=== PATIENT | male | born 1980 ===

== ENCOUNTER 2025-02-27 08:45 | Outpatient (CLI) | payer OTHER ==
--- NOTE | 2025-02-27 13:49 | PROCEDURE NOTE ---
Procedure Note Providers to CC ~ Description: [place] EEG Note # Demographics Type of EEG Read: - Routine EEG - video Patient Location: Outpatient First Name: Juan Last Name: Negrita Date of : 1980 Age: 44 Gender: Male Facility: [facility] Time of Initial Page (): 02/27/2025 11:11 Time of Return Call ([place] Time): 02/27/2025 11:14 # EEG Interpretation Start Time of EEG Read (): 02/27/2025 09:05 Stop Time of EEG Read ([place] ): 02/27/2025 09:50 Duration: 0h 45m Technical Details: - The EEG electrodes were placed using the standard International 10-20 system of electrode placement. Video and an accessory EKG lead were used during the course of this study. - This study was recorded using the [employer] EEG software Indication: - seizure # Description Photic Stimulation: Performed Hyperventilation: performed Phases Captured: - awake Symmetry: symmetric Posterior Dominant Rhythm: - present, attenuates on eye opening 9-10 Hz Predominant Frequencies: - non-posterior dominant alpha (8-12 Hz) - abundant (50-89%) Superimposed Frequencies: - beta (>15 Hz) - occasional (1-9%) Amplitude: normal Reactivity: yes Variability: yes Continuity: continuous EKG: NSR # Abnormalities Stimulation: - photic stimulation does NOT cause abnormalities - hyperventilation does NOT cause abnormalities Epileptiform Abnormalities: - NOT present Focal Slowing: no Seizure: - NOT present # Impression Impression: normal # Clinical Correlation Clinical Correlation: A normal EEG does not exclude nor support the diagnosis of epilepsy. # Demographics First Name: Juan Last Name: Negrita Facility: [facility] ARYA CANDELARIA MD February 27, 2025 13:49
== END 2025-02-27 23:59 | disposition home or self-care (01) ==
LOC: RAD 08:45
PROVIDERS: ATTEND Nurse Practitioner
DX: R56.9 Unspecified convulsions (principal)
CPT/HCPCS: 95813